=== PATIENT | female | born 1975 | race African-American/Black ===

== ENCOUNTER 2024-02-16 15:50 | Emergency (ER) | payer MEDICAID ==
[~2024-02-16] VITALS: Ht 175.3 cm; Wt 140.9 kg
[~2024-02-16 15:50] MED LIST: NOCURR
[2024-02-16 16:02] VITALS: TEMP 98.2
[2024-02-16 16:57] LABS: BASOPHILS % (AUTO) 1.5 % (0.0-2.0); EOSINOPHILS % (AUTO) 0.8 % (1.0-6.0); HEMATOCRIT 45.7 % (36-46); HEMOGLOBIN 14.4 g/dL (12.0-16.0); LYMPHOCYTES # (AUTO) 2.6 K/uL (1.0-4.8); LYMPHOCYTES % (AUTO) 26.8 % (22.0-44.0); MEAN CORPUSCULAR HGB CONC 31.6 G/dL (31.0-37.0); MEAN CORPUSCULAR VOLUME 83 fL (80-100); MONOCYTES # (AUTO) 0.7 K/uL (0.1-1.0); NEUTROPHILS # (AUTO) 6.3 K/uL (1.8-7.7); NEUTROPHILS % (AUTO) 63.9 % (40.0-70.0); PLATELET COUNT (AUTO) 239 K/uL (150-450); RED BLOOD CELL COUNT(AUTO) 5.54 MIL/uL (4.00-5.20); RED CELL DISTRIBUTION WIDTH 13.8 % (11.5-14.5); WHITE BLOOD COUNT (AUTO) 9.8 K/uL (4.5-11.0)
[2024-02-16 17:09] LABS: ANION GAP 4 mmol/L (8-16); CARBON DIOXIDE 34 mmol/L (22-29); CHLORIDE 97 mmol/L (98-107); CREATININE 0.81 mg/dL (0.60-1.30); GLOMERULAR FILTR. RATE CALC > 60 mL/min (>60); GLUCOSE,RANDOM 258 mg/dL (70-110); POTASSIUM 4.6 mmol/L (3.5-5.1); SODIUM SERUM 135 mmol/L (136-145); UREA NITROGEN, BLOOD 8 mg/dL (7-18)
[2024-02-16] MEDS: HYDROCODONE/ACETAMINOPHEN 5-325 MG TABLET PO ONE (17:10)
[2024-02-16 17:16] LABS: ALANINE AMINOTRANSFERASE 34 U/L (12-78); ALBUMIN 2.6 g/dL (3.4-5.0); ALKALINE PHOSPHATASE 126 U/L (46-116); ASPARTATE AMINOTRANSFERASE 42 U/L (15-37); BILIRUBIN,TOTAL 1.4 mg/dL (0.1-1.0); TOTAL PROTEIN, SERUM 7.7 g/dL (6.4-8.2)
[2024-02-16 17:20] LABS: TROPONIN I-HIGH SENSITIVITY 69 ng/L (<51)
[2024-02-16] MEDS: CARVEDILOL 6.25 MG TABLET PO ONE (17:50)
[2024-02-16] MEDS: LOSARTAN POTASSIUM 50 MG TABLET PO ONE (17:51)
[2024-02-16] MEDS: AmLODIPine BESYLATE 5 MG TABLET PO ONE (17:51)
[2024-02-16 17:54] LABS: B-TYPE NATRIURETIC PEPTIDE 75 pg/mL (0-100)
[2024-02-16] MEDS: KETOROLAC TROMETHAMINE 30 MG/ML VIAL IM ONE (19:27)
[2024-02-16] MEDS: BUMETANIDE 1 MG TABLET PO ONE (19:27)
[2024-02-16 20:07] LABS: APPEARANCE,URINE HAZY (CLEAR); BILIRUBIN,URINE NEGATIVE (NEGATIVE); COLOR,URINE YELLOW (YELLOW); GLUCOSE, URINE (UA) >=1000 mg/dL (NEGATIVE); KETONES,URINE NEGATIVE (NEGATIVE); LEUKOCYTE ESTERASE ,URINE SMALL (NEGATIVE); NITRATE,URINE NEGATIVE (NEGATIVE); OCCULT BLOOD,URINE TRACE (NEGATIVE); PH,URINE 6.5 (5.0-8.0); PROTEIN,URINE >600,SEE CONFIRM mg/dL (NEGATIVE); SPECIFIC GRAVITIY, URINE 1.033 (1.003-1.030); UROBILINOGEN,URINE <=1.0 mg/dL (<=1.0)
[2024-02-16 20:19] LABS: BACTERIA,URINE Few /HPF (None Seen); SQUAMOUS EPITHELIAL CELL,UR Many /LPF (None Seen); SULFOSALICYLIC ACID,URINE 4+ (Negative); YEAST,URINE Few /HPF (None Seen)
[2024-02-16 21:18] LABS: TROPONIN I-HIGH SENSITIVITY 66 ng/L (<51)
[2024-02-16 21:34] VITALS: BP 156/100; PULSE 82; RESP 18; O2SAT 95
[2024-02-17] MEDS ORDERED: HYDR-4072 PO
== END 2024-02-16 22:12 | disposition home or self-care (01) ==
LOC: EMS 15:50
DX: S93.402A Sprain of unspecified ligament of left ankle, initial encounter (principal); E11.65 Type 2 diabetes mellitus with hyperglycemia; I10 Essential (primary) hypertension; I16.0 Hypertensive urgency; Z90.89 Acquired absence of other organs; X50.1XXA Overexertion from prolonged static or awkward postures, initial encounter; Y93.01 Activity, walking, marching and hiking; Y92.89 Other specified places as the place of occurrence of the external cause; Y99.8 Other external cause status
CPT/HCPCS: 99285; 71045; 80053; 81001; 83880; 84484; 85025; 87086; 36415; 73610; 93005; 96372; J1885; 81002; 87147